=== PATIENT | female | born 1955 | race Caucasian/White ===

== ENCOUNTER 2021-02-24 16:36 | Emergency (ER) | payer BC, SELFPAY ==
[2021-02-24 16:37] VITALS: BP 134/75; PULSE 106; RESP 18; TEMP 36.9; O2SAT 93; BMI 25.0
[2021-02-24] MEDS: Ondansetron 4 MG/2 ML Vial IV (17:21)
[2021-02-24] MEDS: 0.9% Normal Saline 1,000 ML 999 ML IV (17:21)
--- NOTE | 2021-02-24 17:27 | CM.ED ---
SWAPNIL Note Referral Source: Case Find Referral Reason: No PCP SW met with patient. She confirmed she had no PCP. SW provided her with information on 2020 Healthcare Provider Directory and encouraged her to obtain a PCP. No other issues or concerns voiced. Dia WALTERS
--- NOTE | 2021-02-24 17:32 | RAD_ITS ---
STUDY: X-RAY CHEST REASON FOR EXAM: Female, 66 years old. cough TECHNIQUE: AP portable COMPARISON: None. FINDINGS: There are patchy areas of increased density and interstitial thickening in both lower lobes and right upper lobe which may be consistent with atypical viral pneumonia. There is no demonstrated pleural abnormality. Normal size heart. Normal mediastinum and karlie. Normal visualized pulmonary arteries. Normal visualized aortic arch and descending thoracic aorta. Normal visualized thoracic spine. Normal visualized ribs, clavicles, and shoulders. Nonspecific bowel distention most likely representing ileus. RAD/Chest 1 View (Portable) IMPRESSION: Findings suspicious for Covid 19 pneumonia more severe in the lower lobes Electronically Signed: Minh Palma MD at 18:03 EST , Service support ,
[2021-02-24 17:34] LABS: Absolute Lymphocyte Count 0.39 X10^3/uL (0.83-4.51); Absolute Neutrophil Count 1.4 X10^3/uL (2.0-7.7); Hematocrit 41.8 % (37-47); Hemoglobin 13.9 g/dL (12.0-15.0); Lymphocyte # 0.39 X10^3/ul (0.83-4.51); Lymphocyte % 19.3 % (19-41); Mean Corp Hgb Conc 33.3 g/dL (32-36); Mean Corpuscular Hgb 30.7 pg (27.0-32.0); Mean Corpuscular Volume 92.3 fL (81-99); Monocyte# 0.18 X10^3/uL; Monocyte% 8.9 % (0-10); NRBC Flagged by Analyzer 0 % (0-5); Neutrophil # 1.44 X10^3/uL (2.7-7.7); Neutrophil % 71.3 % (47-70); POSITIVE DIFFERENTIAL YES; Platelet Count 167 K/mm3 (150-450); RBC Distribution Width CV 12.1 % (11.6-14.6); RBC Distribution Width SD 41.4 fl (35.1-43.9); Red Blood Count 4.53 M/mm3 (4.2-5.4)
[2021-02-24 17:41] LABS: Differential Indicated SCAN CRITERIA MET
[2021-02-24 17:52] LABS: Anion Gap 6 (5-15); BUN 12 mg/dL (7-18); BUN/Creat Ratio 19.2 RATIO (10-20); Calcium,Total 8.8 mg/dL (8.5-10.1); Chloride 104 mmol/L (98-107); Creatinine, Serum 0.62 mg/dL (0.55-1.02); EST Glomerular Filtration Rate 101 mL/min (>60); Est Glom Filt Rate - Afr Amer 123 mL/min (>60); Estimated Creatinine Clearance 51.11 ml/min; Glucose 98 mg/dL (74-106); Lipase 57 U/L (73-393); Potassium 3.7 mmol/L (3.5-5.1); Sodium Level 136 mmol/L (136-145)
[2021-02-24 17:58] LABS: AST(SGOT) 39 U/L (15-37); Alanine Aminotransfer ALT/SGPT 33 U/L (13-56); Albumin, Serum 3.4 g/dL (3.2-5.0); Alkaline Phosphatase 81 U/L (45-117); Bilirubin, Direct 0.18 mg/dL (0.00-0.30); Globulin 4.1 g/dL (2.2-4.2); Protein, Total 7.5 g/dL (6.4-8.2)
[2021-02-24 18:09] LABS: Differential Comment SCANNED
[2021-02-24] MEDS: dexAMETHasone 10 MG/ML Vial IV (18:24)
[2021-02-24 18:25] VITALS: PULSE 98; RESP 16; O2SAT 95
--- NOTE | 2021-02-24 18:28 | EX.ED.DYSGE1 ---
HPI History of Present Illness Chief Complaint: Nausea/Vomiting Narrative Narrative: Patient is a 66-year-old female with no reported past medical history. She states that she has had loss of taste and smell with mild cough and upset stomach for approximately 7 days now. She does state that her was tested for Covid and was positive recently. She states she is not been able to eat or drink well and has concern for dehydration as well is concerned that she may have Covid based on her symptoms and exposure and therefore comes in for evaluation. PFSH PFSH Medical History no medical history no medical history Home Medications dexamethasone [Decadron] 6 mg PO DAILY #10 tab 02/24/21 [Rx Last Taken Unknown] ondansetron 4 mg PO Q8H PRN #21 tab 02/24/21 [Rx Last Taken Unknown] Allergy/AdvReac Type Severity Reaction Status Date / Time No Known Allergies Allergy Verified 02/24/21 16:38 Family History no significant family his Surgical History no surgical history Social History Smoking Status: Never smoker [facility] ED Constitutional Constitutional ED: Denies chills or fever(s) ENT ENT ED: Denies sore throat Cardiovascular Cardiovascular: Denies chest pain Respiratory/Chest Respiratory/Chest: Reports cough; Denies dyspnea Gastrointestinal Gastrointestinal: Reports nausea and vomiting; Denies abdominal pain or diarrhea Genitourinary Genitourinary ED: Denies dysuria Musculoskeletal Musculoskeletal: Reports myalgias Integumentary Denies rash Neurologic Neurologic: Denies headache(s) Hematologic/Lymphatic Hematologic/Lymphatic: Denies easy bleeding or easy bruising EXAM Physical Exam Const Vital Signs: 02/24/21 16:37 02/24/21 18:25 Temperature 98.4 F Temperature Source Temporal Pulse Rate 106 H 98 Respiratory Rate 18 16 Blood Pressure 134/75 H Blood Pressure Mean 94 Pulse Ox 93 95 Oxygen Delivery Method Room Air Room Air Positive well nourished and well developed General Appearance ED: well developed HEENT Reports dry mucous membranes Mouth ED: Yes dry mucous membranes Mouth: dry mucous membranes Eyes PERRL and EOMs intact bilaterally Neck supple Neck Narrative: Positive anterior cervical lymphadenopathy Resp normal respiratory effort Resp Narrative: Breath sounds are diminished throughout with rhonchi in the bilateral bases but no signs of distress Cardio regular rate and regular rhythm Rate: other Other Details: Radial pulses are +2-4 bilaterally are equal and symmetric GI non-tender and non-distended GI Narrative: No voluntary guarding or rigidity no pulsatile mass. Bowel sounds are hyperactive Palpation: soft Extremity normal to inspection Neuro oriented x3 and CN's II-XII intact bilaterally Sensorium / Orientation: alert Psych mental status grossly normal Skin no rashes or lesions noted Skin Narrative: Skin turgor slightly increased MDM MDM MDM Narrative Medical decision making narrative: Patient presented to the ER with physical exam and history concerning for mild dehydration as well as possible Covid. A basic work-up was obtained which showed leukopenia consistent with her positive Covid test. Otherwise she had no electrolyte derangement or acute kidney injury. Chest x-ray did show changes consistent with a Covid pneumonia which does fit the exam findings of rhonchi in the bases as well as her positive test. However at this time she is not hypoxic or requiring supplemental oxygen and therefore she can be discharged home with symptomatic medication. Lab Data Attestation: I reviewed the patient's lab results. Labs: Laboratory Results - last 24 hr 02/24/21 02/24/21 02/24/21 17:04 17:04 17:04 WBC 2.0 L RBC 4.53 Hgb 13.9 Hct 41.8 MCV 92.3 MCH 30.7 MCHC 33.3 RDW Std Deviation 41.4 RDW Coeff of Nick 12.1 Plt Count 167 MPV 9.0 Immature Gran % (Auto) 0.500 Neut % (Auto) 71.3 H Lymph % (Auto) 19.3 [place] % (Auto) 8.9 Eos % (Auto) 0.0 Baso % (Auto) 0.0 Absolute Neuts (auto) 1.4 L Absolute Lymphs (auto) 0.39 L Nucleated RBC % 0 Differential Comment SCANNED Diff Path Review May foll Sodium 136 Potassium 3.7 Chloride 104 Carbon Dioxide 26.0 Anion Gap 6 BUN 12 Creatinine 0.62 Estim Creat Clear Calc 51.11 Est GFR (MDRD) Af Amer 123 Est GFR (MDRD) Non-Af 101 BUN/Creatinine Ratio 19.2 Glucose 98 Calcium 8.8 Total Bilirubin 0.60 Direct Bilirubin 0.18 AST 39 H ALT 33 Alkaline Phosphatase 81 Total Protein 7.5 Albumin 3.4 Globulin 4.1 Lipase 57 L Radiography Diagnostic Testing: Clinical Impression(s) from Imaging Studies Chest X-Ray 02/24/21 17:32 IMPRESSION: Findings suspicious for Covid 19 pneumonia more severe in the lower lobes Electronically Signed: Minh Palma MD at 18:03 EST , Service support , Discharge Plan Triage Chief Complaint: Nausea/Vomiting ED Provider: Efra Dyer Dx/Rx/DC Orders Clinical Impression: COVID-19, Dehydration Instructions: Coronavirus Disease 2019 (COVID-19): Caring for Yourself or Others, ED Dehydration (Adult) Prescriptions: New ondansetron 4 mg tablet,disintegrating 4 mg PO Q8H PRN (Reason: nausea and vomiting) Qty: 21 RF: 0 dexamethasone [Decadron] 6 mg tablet 6 mg PO DAILY Qty: 10 RF: 0 Primary Care Provider: Care Physician,No Primary Referrals: Care Physician,No Primary [Primary Care Provider] - Disposition Disposition: Home, Self Care
[2021-02-24 18:58] VITALS: BP 111/62; PULSE 89; RESP 16; O2SAT 96
[2021-02-25 14:26] LABS: Pathologist Review Reviewed
== END 2021-02-24 18:58 | disposition home or self-care (01) ==
PROVIDERS: Emergency Provider Emergency Medicine
DX: U07.1 COVID-19 (principal); E86.0 Dehydration
CPT/HCPCS: 71045; 80048; 80076; 83690; 85025; 87426; 96374; 96375; 99283; J7030; A4216; J2405